=== PATIENT | male | born 1940 ===

== ENCOUNTER 2021-05-25 13:14 | Outpatient (CLI) | payer MEDICARE, OTHER, SELFPAY ==
--- NOTE | 2021-05-25 13:30 | RT.EKG_ITS ---
APPROVED REPORT Exam: Resting ECG Reason for Exam: [place] Patient Location: O HR:71 bpm ECG Measurements Heart Rate 71 AXIS LA 152 P 69 QRSd 81 QRS 18 QT 387 T 51 QTc 421 Conclusion Normal Electrocardiogram Sinus rhythm...normal P axis, V-rate 50- 99
== END 2021-05-25 13:15 | disposition home or self-care (01) ==
LOC: DI.CARD 13:30
PROVIDERS: Visit Provider Internal Medicine Cardiovascular Disease
DX: I21.3 ST elevation (STEMI) myocardial infarction of unspecified site (principal)
CPT/HCPCS: 93010

== ENCOUNTER → 2021-05-25 13:14 | Outpatient (BNVA) | payer MEDICARE, OTHER, SELFPAY | PROVIDERS: Visit Provider Internal Medicine Cardiovascular Disease | DX: I21.3 ST elevation (STEMI) myocardial infarction of unspecified site (principal); I10 Essential (primary) hypertension; E78.5 Hyperlipidemia, unspecified | CPT/HCPCS: 93005; 99203 ==

== ENCOUNTER → 2021-08-24 12:57 | Outpatient (BNVA) | payer MEDICARE, OTHER, SELFPAY | PROVIDERS: Visit Provider Internal Medicine Cardiovascular Disease | DX: I25.2 Old myocardial infarction (principal); I10 Essential (primary) hypertension; E78.5 Hyperlipidemia, unspecified | CPT/HCPCS: 99214; 99213 ==